=== PATIENT | male | born 1985 | race Caucasian/White ===

== ENCOUNTER 2019-02-25 01:04 | Emergency (ER) | payer MEDICAID, OTHER ==
[~2019-02-25] VITALS: Ht 195.6 cm; Wt 102.2 kg
--- NOTE | 2019-02-25 01:51 | NUR ---
PT HERE FOR ETOH WITHDRAWAL S/S, LAST DRINK 7 HOURS AGO. PT WITH HX OF SAME AND TIME IN REHAB IN PAST.
[2019-02-25] MEDS ORDERED: chlordiazePOXIDE 25mg capsule PO ONE (02:45)
[2019-02-25] MEDS ORDERED: GABA-532 PO (02:49)
[2019-02-25 03:14] VITALS: BP 140/71
== END 2019-02-25 03:16 | disposition home or self-care (01) ==
LOC: ER 01:05
DX: F10.230 Alcohol dependence with withdrawal, uncomplicated (principal); F12.90 Cannabis use, unspecified, uncomplicated; Z91.018 Allergy to other foods
CPT/HCPCS: 99283